=== PATIENT | female | born 2000 | race American Indian/Alaskan Native ===

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

== ENCOUNTER 2023-06-04 02:07 | Emergency (ER) | payer OTHER ==
[~2023-06-04] VITALS: Ht 182.9 cm; Wt 77.4 kg
[2023-06-04 02:36] VITALS: BP 130/69
== END 2023-06-04 02:36 | disposition home or self-care (01) ==
LOC: ED 02:07
DX: O21.2 Late vomiting of pregnancy (principal); Z3A.25 25 weeks gestation of pregnancy; O99.891 Other specified diseases and conditions complicating pregnancy; R10.9 Unspecified abdominal pain
CPT/HCPCS: 99282